=== PATIENT | female | born 2000 | race Caucasian/White ===

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

== ENCOUNTER → 2020-08-21 | Outpatient (REF) | payer OTHER | LOC: M SFHCPLAZ 17:17 | PROVIDERS: ATTEND Physician Assistant | DX: R50.9 Fever, unspecified (principal) ==

== ENCOUNTER → 2020-09-16 | Outpatient (REF) | payer OTHER ==
[2020-09-16 18:34] LABS: GC DNA AMPLIFICATION NEGATIVE (NEGATIVE)
== END ==
LOC: M SFHCWAGY 15:21
PROVIDERS: ATTEND Nurse Practitioner Women's Health
DX: Z11.3 Encounter for screening for infections with a predominantly sexual mode of transmission (principal)

== ENCOUNTER → 2021-08-31 | Outpatient (CLI) | payer OTHER ==
[2021-08-31 16:01] LABS: FREE T4 1.1 NG/DL (0.76-1.46); THYROID STIMULATING HORMONE 1.49 uIU/ML (0.358-3.740)
[2021-08-31 16:47] LABS: LUTEINIZING HORMONE 3.9 mIU/mL; PROGESTERONE 6.62 NG/ML; PROLACTIN 4.5 NG/ML
[2021-08-31 16:48] LABS: FOLLICLE STIMULATING HORMONE 3.5 mIU/mL
== END ==
LOC: M PLALAB 10:15
PROVIDERS: ATTEND Specialist
DX: N92.6 Irregular menstruation, unspecified (principal)

== ENCOUNTER → 2021-11-18 | Outpatient (CLI) | payer OTHER ==
[2021-11-18 15:53] LABS: BASO # 0.1 10^3/uL (0.0-0.2); BASO % 0.9 % (0.0-1.0); EOS # 0.3 10^3/uL (0.0-0.5); EOS % 1.8 % (0.0-3.0); HEMATOCRIT 40.1 % (36.0-47.0); HEMOGLOBIN 13.7 g/dl (12.0-15.5); LYMPH # 2.8 10^3/uL (1.5-5.0); LYMPH % 18.1 % (24.0-44.0); MEAN CORPUSCULAR HEMOGLOBIN 30.4 pg (27.0-33.0); MEAN CORPUSCULAR HGB CONC 34.2 g/dl (32.0-36.5); MEAN CORPUSCULAR VOLUME 89.1 fl (80.0-96.0); MONO % 6.7 % (2.0-8.0); PLATELET COUNT, AUTOMATED 327 10^3/uL (150-450); WHITE BLOOD COUNT 15.2 10^3/uL (4.0-10.0)
[2021-11-18 17:00] LABS: GC DNA AMPLIFICATION NEGATIVE (NEGATIVE)
[2021-11-18 17:25] LABS: HEPATITIS C VIRUS ABY INDEX < 0.0 INDEX (<0.8); HIV 1&2 SCREEN CENTAUR NEGATIVE (NEGATIVE)
== END ==
LOC: M PLALAB 13:49
PROVIDERS: ATTEND Specialist
DX: Z36.9 Encounter for antenatal screening, unspecified (principal)

== ENCOUNTER → 2021-12-08 | Outpatient (CLI) | payer OTHER | LOC: M PLALAB 15:14 | PROVIDERS: ATTEND Specialist | DX: Z34.80 Encounter for supervision of other normal pregnancy, unspecified trimester (principal) ==

== ENCOUNTER → 2022-01-26 | Outpatient (CLI) | payer OTHER | LOC: M WHC 08:06 | PROVIDERS: ATTEND Obstetrics & Gynecology | DX: O32.1XX0 Maternal care for breech presentation, not applicable or unspecified (principal); Z3A.20 20 weeks gestation of pregnancy ==

== ENCOUNTER → 2022-02-24 | Outpatient (CLI) | payer OTHER | LOC: M WHC 12:24 | PROVIDERS: ATTEND Obstetrics & Gynecology | DX: Z36.2 Encounter for other antenatal screening follow-up (principal); Z3A.23 23 weeks gestation of pregnancy ==

== ENCOUNTER → 2022-03-15 | Outpatient (CLI) | payer OTHER ==
[2022-03-15 13:33] LABS: HEMATOCRIT 35.3 % (36.0-47.0); MEAN CORPUSCULAR HEMOGLOBIN 30.7 pg (27.0-33.0); MEAN CORPUSCULAR VOLUME 90.3 fl (80.0-96.0); PLATELET COUNT, AUTOMATED 335 10^3/uL (150-450); RED BLOOD COUNT 3.91 10^6/uL (4.00-5.40); WHITE BLOOD COUNT 16.5 10^3/uL (4.0-10.0)
[2022-03-15 16:43] LABS: GC DNA AMPLIFICATION NEGATIVE (NEGATIVE)
== END ==
LOC: M PLALAB 08:40
PROVIDERS: ATTEND Obstetrics & Gynecology
DX: Z34.92 Encounter for supervision of normal pregnancy, unspecified, second trimester (principal)

== ENCOUNTER 2022-04-20 01:15 | Observation (INO) | payer OTHER ==
[2022-04-20] VITALS (8 sets, daily range): BP systolic 98–123; BP diastolic 54–71
[~2022-04-20] VITALS: Ht 157.5 cm; Wt 81.1 kg
[2022-04-20] MEDS: BETAMETHASONE SOLUSPAN 6MG/ML 5ML VIAL IM SCH (02:59)
[2022-04-20 03:34] LABS: HEMATOCRIT 35.6 % (36.0-47.0); HEMOGLOBIN 12.3 g/dl (12.0-15.5); MEAN CORPUSCULAR HEMOGLOBIN 30.1 pg (27.0-33.0); MEAN CORPUSCULAR HGB CONC 34.6 g/dl (32.0-36.5); PLATELET COUNT, AUTOMATED 369 10^3/uL (150-450); RED BLOOD COUNT 4.09 10^6/uL (4.00-5.40); WHITE BLOOD COUNT 19.3 10^3/uL (4.0-10.0)
[2022-04-20 03:53] LABS: INR 1.03; PROTHROMBIN TIME 13.7 SECONDS (12.5-14.5)
[2022-04-20 03:54] LABS: PARTIAL THROMBOPLASTIN TIME 27.4 SECONDS (24.8-34.2)
[2022-04-21 01:00] VITALS: BP 105/61
[2022-04-21] MEDS: BETAMETHASONE SOLUSPAN 6MG/ML 5ML VIAL IM SCH (02:13)
[2022-04-21 05:30] VITALS: BP 112/58
[2022-04-21 10:00] VITALS: BP 106/56
[2022-04-21 14:00] VITALS: BP 112/62
[2022-04-21 18:00] VITALS: BP 110/56
[2022-04-21 22:00] VITALS: BP 123/56
[2022-04-22 02:00] VITALS: BP 100/51
[2022-04-22 06:00] VITALS: BP 104/53
[2022-04-22 10:00] VITALS: BP 118/60
[2022-04-22 13:05] LABS: HEMATOCRIT 31.6 % (36.0-47.0); HEMOGLOBIN 10.7 g/dl (12.0-15.5); MEAN CORPUSCULAR HEMOGLOBIN 29.9 pg (27.0-33.0); MEAN CORPUSCULAR HGB CONC 33.9 g/dl (32.0-36.5); MEAN CORPUSCULAR VOLUME 88.3 fl (80.0-96.0); PLATELET COUNT, AUTOMATED 333 10^3/uL (150-450); RED BLOOD COUNT 3.58 10^6/uL (4.00-5.40); WHITE BLOOD COUNT 19.7 10^3/uL (4.0-10.0)
== END 2022-04-22 14:30 | disposition home or self-care (01) ==
LOC: M LDO 01:15 → M OBS 01:16
PROVIDERS: ADMIT Advanced Practice Midwife; ATTEND Advanced Practice Midwife
DX: O46.93 Antepartum hemorrhage, unspecified, third trimester (principal); Z3A.31 31 weeks gestation of pregnancy
CPT/HCPCS: 36415; 59025; 76815; 76817; 76819; 76820; 85027; 85384; 85610; 85730; 86850; 86900; 86901; 87081; 96372; G0463; J0702

== ENCOUNTER → 2022-05-11 | Outpatient (CLI) | payer OTHER | LOC: M WHC 12:02 | PROVIDERS: ATTEND Obstetrics & Gynecology | DX: O45.93 Premature separation of placenta, unspecified, third trimester (principal); Z3A.34 34 weeks gestation of pregnancy ==

== ENCOUNTER → 2022-05-25 | Outpatient (REF) | payer OTHER ==
[~2022-05-25] MED LIST: COLA100C5 PO; IBUP-1022 PO; OXYC-517 PO
== END ==
LOC: M SFHCWAGY 16:43
PROVIDERS: ATTEND Advanced Practice Midwife
DX: Z34.83 Encounter for supervision of other normal pregnancy, third trimester (principal); Z3A.36 36 weeks gestation of pregnancy

== ENCOUNTER 2022-06-09 07:44 | Inpatient (IN) | payer OTHER ==
[~2022-06-09] VITALS: Ht 157.5 cm; Wt 88.3 kg
[2022-06-09] VITALS (7 sets, daily range): BP systolic 123–138; BP diastolic 67–84
[2022-06-09] MEDS ORDERED: HOME MED LIST COMPLETE! XX SCH (08:00)
[2022-06-09 08:45] LABS: HEMATOCRIT 37.4 % (36.0-47.0); HEMOGLOBIN 12.5 g/dl (12.0-15.5); MEAN CORPUSCULAR HEMOGLOBIN 28.7 pg (27.0-33.0); MEAN CORPUSCULAR HGB CONC 33.4 g/dl (32.0-36.5); PLATELET COUNT, AUTOMATED 385 10^3/uL (150-450); RED BLOOD COUNT 4.35 10^6/uL (4.00-5.40); WHITE BLOOD COUNT 13.6 10^3/uL (4.0-10.0)
[2022-06-09] MEDS ORDERED: OXYTOCIN INJ 10UNITS/ML 1ML VIAL IM PRN (09:10)
[2022-06-09] MEDS ORDERED: TRANEXAMIC ACID INJection 1,000 MG in NS 100 ML IV PRN (09:10)
[2022-06-09] MEDS ORDERED: METHYLERGONOVINE MALEATE 0.2MG/ML 1ML VIAL IM PRN (09:10)
[2022-06-09] MEDS ORDERED: LIDOCAINE 1% MDV 20ML VIAL INFIL PRN (09:10)
[2022-06-09] MEDS ORDERED: CARBOPROST TROMETHAMINE 250 MCG/ML AMP IM PRN (09:10)
[2022-06-09] MEDS ORDERED: OXYTOCIN DRIP 30 UNITS in IV 1 EA IV PRN ×4 (09:10)
[2022-06-09] MEDS: miSOPROStol 50MCG 1/2 TABLET PO SCH ×4 (09:27→21:49)
[2022-06-09] MEDS ORDERED: OXYTOCIN DRIP 30 UNITS in IV 1 EA IV SCH (21:20)
[2022-06-10] VITALS (40 sets, daily range): BP systolic 91–159; BP diastolic 51–80
[2022-06-10] MEDS: LR 1,000 ML IV SCH ×4 (02:32→23:30)
[2022-06-10] MEDS ORDERED: EPIDURAL/PCA KEYS XX PRN (20:50)
[2022-06-10] MEDS ORDERED: ONDANSETRON 4MG 2ML VIAL IV PRN (20:50)
[2022-06-10] MEDS ORDERED: FENTANYL/ROPIVACAINE/NACL BAG 100 ML EPIDURAL SCH (20:50)
[2022-06-10] MEDS ORDERED: ePHEDrine SULFATE 25 MG/5 ML(5MG/ML) SYRINGE IVP PRN (20:50)
[2022-06-10] MEDS ORDERED: diphenhydrAMINE 50MG/ML VIAL IV PRN (20:50)
[2022-06-10] MEDS ORDERED: LR 500 ML IV PRN (20:50)
[2022-06-10] MEDS ORDERED: NALOXONE INJ 0.4MG/1ML VIAL IV PRN (20:50)
[2022-06-11] VITALS (23 sets, daily range): BP systolic 82–128; BP diastolic 47–78
[2022-06-11] MEDS ORDERED: ceFAZolin 2 GM/D5W 50 ML IV BAG As Ordered ONE (03:14)
[2022-06-11] MEDS ORDERED: BICITRA 30ML SOLN UDC As Ordered ONE (03:15)
[2022-06-11] MEDS ORDERED: ONDANSETRON 4MG 2ML VIAL As Ordered ONE (03:36)
[2022-06-11] MEDS ORDERED: KETOROLAC 60MG 2ML VIAL As Ordered ONE (03:36)
[2022-06-11] MEDS ORDERED: LIDOCAINE 2% W/EPINEPHRINE 20ML VIAL **PRES FREE As Ordered ONE (03:36)
[2022-06-11] MEDS ORDERED: MORPHINE PRES-FREE INJ 10 MG/10 ML VIAL As Ordered ONE (03:36)
[2022-06-11] MEDS ORDERED: OXYTOCIN 30UNITS IN 0.9% NaCl 500ML IV BAG As Ordered ONE (03:41)
[2022-06-11 03:54] LABS: CORD GAS ABE A -1.5; CORD GAS ABE V -3.1; CORD GAS HCO3 A 24.4 MEQ/L; CORD GAS HCO3 V 20.8 MEQ/L; CORD GAS O2 SAT A 44.6 %; CORD GAS O2 SAT V 72.1 %; CORD GAS PCO2 A 45.2 mmHg; CORD GAS PCO2 V 34.3 mmHg; CORD GAS PH A 7.35 UNITS; CORD GAS PH V 7.401 UNITS; CORD GAS PO2 A 18.8 mmHg; CORD GAS PO2 V 27.9 mmHg; CORD GAS SBC A 21.9 MEQ/L; CORD GAS SBC V 21.3 MEQ/L; CORD GAS TCO2 A 25.8 MEQ/L; CORD GAS TCO2 V 21.9 MEQ/L
[2022-06-11] MEDS ORDERED: ceFAZolin SOD 2 GM in IV 1 EA IV ONE (04:00)
[2022-06-11] MEDS ORDERED: BICITRA 30ML SOLN UDC PO ONE (04:00)
[2022-06-11] MEDS ORDERED: OXYTOCIN DRIP 30 UNITS in IV 1 EA IV SCH (04:35)
[2022-06-11] MEDS ORDERED: oxyCODONE 5MG TAB PO PRN ×3 (04:35→06:15)
[2022-06-11] MEDS ORDERED: RHOGAM 300MCG (1500IU) INJ IM SCH (04:35)
[2022-06-11] MEDS ORDERED: AZITHROMYCIN INJ 500 MG, VIAL MATE ADAPTER 1 EACH in NS 250 ML IV ONE (05:00)
[2022-06-11] MEDS: ACETAMINOPHEN 500 MG TAB PO SCH ×3 (06:00→18:51)
[2022-06-11] MEDS ORDERED: diphenhydrAMINE 50MG/ML VIAL IV PRN (06:15)
[2022-06-11] MEDS ORDERED: **NOTE PATIENT COMMENT** MISC XX SCH (06:15)
[2022-06-11] MEDS ORDERED: LR 1,000 ML IV SCH (06:15)
[2022-06-11] MEDS ORDERED: METOCLOPRAMIDE INJ 10MG/2ML VIAL IV PRN (06:15)
[2022-06-11] MEDS ORDERED: NALOXONE INJ 0.4MG/1ML VIAL IV PRN ×2 (06:15)
[2022-06-11] MEDS ORDERED: ONDANSETRON 4MG 2ML VIAL IV PRN (06:15)
[2022-06-11] MEDS ORDERED: fentaNYL 100 MCG/2 ML INJECTION IV PRN (06:15)
[2022-06-11] MEDS: SLF 3 ML SYR IV SCH ×3 (07:00→22:20)
[2022-06-11] MEDS: PRENATAL VITAMINS CHEWABLE TABLET PO SCH (09:34)
[2022-06-11] MEDS: KETOROLAC 30 MG/ML 1ML VIAL IV SCH ×3 (09:35→22:20)
[2022-06-11] MEDS: ceFAZolin SOD 2 GM in IV 1 EA IV SCH ×2 (12:00→20:43)
[2022-06-11] MEDS: SIMETHICONE 80MG CHEW TAB PO PRN (16:25)
[2022-06-12] MEDS: ACETAMINOPHEN 500 MG TAB PO SCH ×5 (00:37→23:23)
[2022-06-12 02:00] VITALS: BP 111/55
[2022-06-12] MEDS: ceFAZolin SOD 2 GM in IV 1 EA IV SCH (04:20)
[2022-06-12] MEDS: IBUPROFEN 600MG TAB PO SCH ×4 (04:21→23:22)
[2022-06-12 06:00] VITALS: BP 116/71
[2022-06-12 06:55] LABS: HEMATOCRIT 25.3 % (36.0-47.0); HEMOGLOBIN 8.3 g/dl (12.0-15.5); MEAN CORPUSCULAR HEMOGLOBIN 29.1 pg (27.0-33.0); MEAN CORPUSCULAR HGB CONC 32.8 g/dl (32.0-36.5); MEAN CORPUSCULAR VOLUME 88.8 fl (80.0-96.0); PLATELET COUNT, AUTOMATED 299 10^3/uL (150-450); RED BLOOD COUNT 2.85 10^6/uL (4.00-5.40)
[2022-06-12 10:00] VITALS: BP 105/57
[2022-06-12] MEDS: PRENATAL VITAMINS CHEWABLE TABLET PO SCH (10:25)
[2022-06-12 14:00] VITALS: BP 115/73
[2022-06-12 18:00] VITALS: BP 126/59
[2022-06-12] MEDS: SIMETHICONE 80MG CHEW TAB PO PRN (18:34)
[2022-06-12 22:00] VITALS: BP 127/72
[2022-06-13 02:00] VITALS: BP 100/50
[2022-06-13] MEDS: IBUPROFEN 600MG TAB PO SCH (05:57)
[2022-06-13] MEDS: ACETAMINOPHEN 500 MG TAB PO SCH (05:57)
[2022-06-13] MEDS: SIMETHICONE 80MG CHEW TAB PO PRN (05:57)
[2022-06-13 06:00] VITALS: BP 117/66
[2022-06-13] MEDS ORDERED: MEASLES,MUMPS,RUBELLA VACCINE INJ (MMR-II) SC.IMMUN ONE (09:00)
[2022-06-13] MEDS: PRENATAL VITAMINS CHEWABLE TABLET PO SCH (09:30)
[2022-06-13 10:00] VITALS: BP 117/66
[2022-06-13] MEDS ORDERED: IBUP-1022 PO ×2 (10:54→10:58)
[2022-06-13] MEDS ORDERED: COLA100C5 PO ×2 (10:54→10:58)
[2022-06-13] MEDS ORDERED: OXYC-517 PO (10:56)
== END 2022-06-13 11:50 | disposition home or self-care (01) | DRG 540 ==
LOC: M LDI 07:44 → M OBS 06-11 06:11
PROVIDERS: ADMIT Advanced Practice Midwife; ATTEND Obstetrics & Gynecology
PROC: 3E033VJ Introduction of Other Hormone into Peripheral Vein, Percutaneous Approach (ICD-10-PCS; 2022-06-09)
PROC: 10907ZC Drainage of Amniotic Fluid, Therapeutic from Products of Conception, Via Natural or Artificial Opening (ICD-10-PCS; 2022-06-10)
PROC: 10D00Z1 Extraction of Products of Conception, Low, Open Approach (ICD-10-PCS; principal; 2022-06-11 04:20)
DX: O45.93 Premature separation of placenta, unspecified, third trimester (principal); O76 Abnormality in fetal heart rate and rhythm complicating labor and delivery; Z3A.39 39 weeks gestation of pregnancy; O75.89 Other specified complications of labor and delivery; Z37.0 Single live birth

== ENCOUNTER → 2022-10-18 | Outpatient (CLI) | payer OTHER ==
[2022-10-18 15:56] LABS: BLOOD UREA NITROGEN 15 MG/DL (9-23); CALCIUM LEVEL 9.6 MG/DL (8.5-10.1); CARBON DIOXIDE LEVEL 26 MMOL/L (20-31); CHLORIDE LEVEL 104 MMOL/L (98-107); CREATININE FOR GFR 1.01 MG/DL (0.55-1.30); GLOMERULAR FILTRATION RATE > 60.0 (>60); GLUCOSE, FASTING 98 MG/DL (60-100); POTASSIUM SERUM 4.4 MMOL/L (3.5-5.1); SODIUM LEVEL 138 MMOL/L (136-145)
[2022-10-18 15:57] LABS: BASO # 0.1 10^3/uL (0.0-0.2); BASO % 1.1 % (0.0-1.0); EOS # 0.3 10^3/uL (0.0-0.5); EOS % 2.6 % (0.0-3.0); HEMOGLOBIN 13.1 g/dl (12.0-15.5); LYMPH % 23.9 % (24.0-44.0); MEAN CORPUSCULAR HGB CONC 32.8 g/dl (32.0-36.5); MEAN CORPUSCULAR VOLUME 82.3 fl (80.0-96.0); MONO # 0.8 10^3/uL (0.0-0.8); MONO % 6.4 % (2.0-8.0); NEUTROPHILS # 8.1 10^3/uL (1.5-8.5); NEUTROPHILS % 65.6 % (36.0-66.0); PLATELET COUNT, AUTOMATED 398 10^3/uL (150-450); RED BLOOD COUNT 4.86 10^6/uL (4.00-5.40); WHITE BLOOD COUNT 12.4 10^3/uL (4.0-10.0)
[2022-10-18 16:01] LABS: THYROID STIMULATING HORMONE 1.683 uIU/ML (0.55-4.78)
[2022-10-18 16:02] LABS: FREE T4 1.19 NG/DL (0.89-1.76)
== END ==
LOC: M PLALAB 13:51
PROVIDERS: ATTEND Student in an Organized Health Care Education/Training Program
DX: Z00.00 Encounter for general adult medical examination without abnormal findings (principal); F41.9 Anxiety disorder, unspecified

== ENCOUNTER → 2023-08-16 | Outpatient (REF) | payer OTHER | LOC: M PLALAB 16:34 | PROVIDERS: ATTEND Obstetrics & Gynecology | DX: Z12.4 Encounter for screening for malignant neoplasm of cervix (principal) ==

== ENCOUNTER → 2023-09-12 | Outpatient (CLI) | payer OTHER ==
[2023-09-12 13:57] LABS: HEMOGLOBIN A1c 5.3 % (4.0-6.0)
[2023-09-12 14:15] LABS: ALBUMIN 3.5 G/DL (3.2-5.2); ALKALINE PHOSPHATASE 91 U/L (46-116); ALT/SGPT 25 U/L (7.0-40); AST/SGOT 14 U/L (<34); BILIRUBIN,TOTAL 0.4 MG/DL (0.3-1.2); BLOOD UREA NITROGEN 12 MG/DL (9-23); CARBON DIOXIDE LEVEL 25 MMOL/L (20-31); CHLORIDE LEVEL 108 MMOL/L (98-107); CHOLESTEROL LEVEL 178 MG/DL (<200); CHOLESTEROL RISK RATIO 4.86 (<5); CREATININE FOR GFR 0.66 MG/DL (0.55-1.30); GLOMERULAR FILTRATION RATE > 60.0 (>60); GLUCOSE, FASTING 93 MG/DL (60-100); HDL CHOLESTEROL 36.6 MG/DL (>40); LDL CHOLESTEROL 113.8 MG/DL (<100); NON-HDL-C 141.4 MG/DL; POTASSIUM SERUM 4.4 MMOL/L (3.5-5.1); SODIUM LEVEL 138 MMOL/L (136-145); TOTAL PROTEIN 7.3 G/DL (5.7-8.2); TRIGLYCERIDES LEVEL 138 MG/DL (<150)
[2023-09-12 14:17] LABS: FREE T4 1.04 NG/DL (0.89-1.76); THYROID STIMULATING HORMONE 2.863 uIU/ML (0.55-4.78)
[2023-09-12 14:21] LABS: HCG, SERUM QUALITATIVE NEGATIVE (NEGATIVE)
== END ==
LOC: M PLALAB 09:22
PROVIDERS: ATTEND Student in an Organized Health Care Education/Training Program
DX: R63.5 Abnormal weight gain (principal)